=== PATIENT | female | born 1975 | race American Indian/Alaskan Native ===

== ENCOUNTER 2016-12-15 09:25 | Outpatient (CLI) | payer MEDICARE ==
--- NOTE | 2016-12-15 10:29 | Mammography Report ---
BILATERAL MAMMOGRAM: Compared to 10/15/15. CAD study utilized. FINDINGS: Bilateral dense breast parenchyma. No mass or microcalcification. Benign axilla. IMPRESSION: Benign findings. Annual follow-up recommended. BI-RADS CATEGORY: 2 = Benign ACR BI-RADS MAMMOGRAPHIC CODES: 0 = Needs additional imaging evaluation; 1 = Negative; 2 = Benign; 3 = Probably benign; 4 = Suspicious; 5 = Malignant; 6 = Known biopsy-proven malignancy COMMENT: 1. Dense breast tissue, i.e., adenosis, fibrocystic changes, etc., may obscure an underlying neoplasm. 2. Approximately 10% of cancers are not detected with mammography. 3. A negative mammography report should not delay biopsy if a clinically suspicious mass is present. COMMENT: Patient follow-up letters are generated in [employer].
== END 2016-12-15 09:26 | disposition home or self-care (01) ==
LOC: MAMMO 09:25
PROVIDERS: ATTEND Internal Medicine
DX: Z12.31 Encounter for screening mammogram for malignant neoplasm of breast (principal)
CPT/HCPCS: 77067; G0202

== ENCOUNTER 2018-04-07 19:25 | Emergency (ER) | payer MEDICARE ==
[2018-04-07] MEDS ORDERED: TYLENOL PO ONE (20:28)
[2018-04-07] MEDS ORDERED: ZOFRAN ODT ONE (20:42)
[2018-04-07] MEDS ORDERED: ZOFRAN ODT PO ONE (20:42)
[2018-04-07 20:51] LABS: Alanine Aminotransferase 27 units/L (7-56); Albumin 4.7 g/dL (3.9-5); BUN/Creatinine Ratio 10; Blood Urea Nitrogen 6 mg/dL (7-17); Calcium 9.8 mg/dL (8.4-10.2); Hemolysis Index 1; Lipase 41 units/L (13-60)
[2018-04-07 20:52] LABS: Basophils % (Auto) 0.3 % (0.0-1.8); Eosinophils % (Auto) 0.1 % (0.0-4.3); Hematocrit 36.7 % (30.3-42.9); Hemoglobin 11.9 gm/dl (10.1-14.3); Lymphocytes # (Auto) 0.9 K/mm3 (1.2-5.4); Lymphocytes % (Auto) 15.9 % (13.4-35.0); Mean Corpuscular HGB Conc 32 % (30-34); Mean Corpuscular Hemoglobin 28 pg (28-32); Mean Corpuscular Volume 85 fl (79-97); Monocytes # (Auto) 0.6 K/mm3 (0.0-0.8); Monocytes % (Auto) 11.2 % (0.0-7.3); Platelet Count 200 K/mm3 (140-440); Red Blood Count 4.32 M/mm3 (3.65-5.03); Red Cell Distribution Width 15.5 % (13.2-15.2)
[2018-04-07 21:44] LABS: Amorphous Crystals,Urine 1+; Bacteria,Urine 1+ /HPF (Negative); Bilirubin,Urine NEG (Negative); Blood,Urine NEG (Negative); Color,Urine Yellow (Yellow); Urobilinogen,Urine < 2.0 mg/dL (<2.0)
[2018-04-07 21:45] LABS: HCG Qualitative,Urine Negative (Negative)
[2018-04-08] MEDS ORDERED: TORADOL IV ONE (01:27)
[2018-04-08] MEDS ORDERED: ZOFRAN IV ONE (01:27)
[2018-04-08] MEDS ORDERED: NACL 0.9% 1000 ML 1,000 ML IV ONE (01:27)
--- NOTE | 2018-04-08 01:33 | Emergency Department Report ---
ED Abdominal Pain HPI - General Chief Complaint: Abdominal Pain Stated Complaint: ABD PAIN; FEVER Time Seen by Provider: 04/08/18 01:22 Source: patient Mode of arrival: Ambulatory Limitations: No Limitations - History of Present Illness Initial Comments: Patient is 43 years old female with no significant past medical history. The patient presented to the ER complaining of epigastric abdominal pain associated with fever and sore throat. Patient stated that her symptoms started this morning. Patient is also complaining of vomiting, no diarrhea. Patient denied any urinary frequency or dysuria. No chest pain or shortness of breath. MD Complaint: abdominal pain -: This morning Location: epigastric Radiation: none Migration to: no migration Severity: moderate Severity scale (0 -10): 6 Quality: sharp Consistency: constant Worsens With: vomiting Associated Symptoms: nausea, vomiting, chills. denies: constipation, dysuria, melena, hematuria, anorexia - Related Data Allergies Allergy/AdvReac Type Severity Reaction Status Date / Time No Known Allergies Allergy Verified 04/07/18 20:45 ED Review of Systems ROS: Stated complaint: ABD PAIN; FEVER Other details as noted in HPI Comment: All other systems reviewed and negative Constitutional: chills, fever ENT: throat pain Respiratory: denies: cough, orthopnea, shortness of breath, SOB with exertion, SOB at rest Gastrointestinal: abdominal pain, nausea, vomiting. denies: diarrhea, constipation, hematemesis, hematochezia Neurological: denies: headache, weakness, numbness, paresthesias ED Past Medical Hx - Past Medical History Previous Medical History?: Yes Additional medical history: cancer - Surgical History Past Surgical History?: Yes Additional Surgical History: c section - Social History Smoking Status: Never Smoker Substance Use Type: None ED Physical Exam - General Limitations: No Limitations General appearance: alert, in no apparent distress - Head Head exam: Present: atraumatic, normocephalic - Eye Eye exam: Present: normal appearance - ENT ENT exam: Present: mucous membranes moist. Absent: normal orophraynx ( pharyngeal erythema) - Neck Neck exam: Present: normal inspection, full ROM. Absent: tenderness, meningismus, lymphadenopathy, thyromegaly - Respiratory Respiratory exam: Present: normal lung sounds bilaterally. Absent: respiratory distress, wheezes, rales, rhonchi, stridor, accessory muscle use, decreased breath sounds, prolonged expiratory - Cardiovascular Cardiovascular Exam: Present: regular rate, normal rhythm, normal heart sounds - GI/Abdominal GI/Abdominal exam: Present: soft, tenderness (epigastric tenderness), normal bowel sounds, other (negative McBurney sign). Absent: distended, guarding, rebound, rigid, organomegaly, mass, bruit, pulsatile mass, hernia - Extremities Exam Extremities exam: Present: normal inspection, full ROM, normal capillary refill - Back Exam Back exam: Present: normal inspection, full ROM. Absent: tenderness, CVA tenderness (R), CVA tenderness (L), muscle spasm, paraspinal tenderness, vertebral tenderness, rash noted - Neurological Exam Neurological exam: Present: alert, oriented X3, CN II-XII intact, normal gait - Skin Skin exam: Present: warm, intact, normal color ED Course Vital Signs 04/07/18 04/08/18 04/08/18 19:49 02:05 04:22 Temperature 101.0 F H 99.3 F Pulse Rate 101 H 84 Respiratory 16 16 Rate Blood Pressure 132/84 Blood Pressure 128/81 [Right] O2 Sat by Pulse 100 98 Oximetry ED Medical Decision Making - Lab Data Result diagrams: 04/07/18 20:12 04/07/18 20:12 - Radiology Data Radiology results: report reviewed Referring Physician: VINICIO HICKS Patient Name: LORENA CHAUDHRY Date of : 1975 Sex: Female Report Date: 2018-04-08 Report Status: Finalized Findings [facility] [address] [place] [address] XRay Report Signed Patient: LORENA CHAUDHRY MR#: [id number] : 1975 Acct:[id number] Age/Sex: 43 / F ADM Date: 04/07/18 Loc: ED Attending Dr: Ordering Physician: VINICIO HICKS Date of Service: 04/08/18 Procedure(s): XR abd series w cxr 1V Accession Number(s): [id number] cc: VINICIO HICKS Fluoro Time In Minutes: FINAL REPORT EXAM: XR ABD SERIES W CXR 1V HISTORY: abdominal pain TECHNIQUE: A single view of the chest was obtained along with two views of the abdomen and pelvis. FINDINGS: The chest reveals normal heart size and mediastinum. The lungs are clear. Pleural fluid is not seen. The skeletal structures do not show any acute changes. The bowel gas pattern appears normal. There is a moderate amount retained feces in the ascending and transverse colon. There is no evidence of suspicious calcifications or mass effect. The bones soft tissues well maintained. IMPRESSION: Within normal limits. Transcribed By: RB Dictated By: RUPERT SILVERMAN MD Electronically Authenticated By: RUPERT SILVERMAN MD Signed Date/Time: 04/08/18152 DD/ 2 TD/TT: 04/08/18152 - Medical Decision Making Patient is sleeping comfortably, in no acute distress. She stated that she is feeling much better. No more abdominal pain or vomiting. I advised the patient to follow-up with her primary care physician in the next 2-3 days. I also advised to return to the ER if her symptoms are not improving. Critical care attestation.: If time is entered above; I have spent that time in minutes in the direct care of this critically ill patient, excluding procedure time. ED Disposition Clinical Impression: Abdominal pain, Gastritis Disposition: DC-01 TO HOME OR SELFCARE Is pt being admited?: No Condition: Stable Instructions: Abdominal Pain (ED), Gastritis (ED) Referrals: PRIMARY CAREMD [Primary Care Provider] - 3-5 Days
--- NOTE | 2018-04-08 02:11 | XRay Report ---
FINAL REPORT EXAM: XR ABD SERIES W CXR 1V HISTORY: abdominal pain TECHNIQUE: A single view of the chest was obtained along with two views of the abdomen and pelvis. FINDINGS: The chest reveals normal heart size and mediastinum. The lungs are clear. Pleural fluid is not seen. The skeletal structures do not show any acute changes. The bowel gas pattern appears normal. There is a moderate amount retained feces in the ascending and transverse colon. There is no evidence of suspicious calcifications or mass effect. The bones soft tissues well maintained. IMPRESSION: Within normal limits.
[2018-04-08] MEDS ORDERED: ALUM-MAG HYDROX-SIMETH 200-200-20MG/5ML PO ONE (02:38)
[2018-04-08] MEDS ORDERED: LIDOCAINE VISCOUS 2% PO ONE (02:38)
[2018-04-08 05:42] VITALS: BP 123/64
== END 2018-04-08 05:41 | disposition home or self-care (01) ==
LOC: ED 19:25
DX: K29.70 Gastritis, unspecified, without bleeding (principal)
CPT/HCPCS: 36415; 74022; 80053; 81001; 81025; 83690; 85025; 87116; 87430; 96361; 96374; 96375; 99284; J1885; J2405; J7030; Q0162

== ENCOUNTER 2019-01-26 11:51 | Emergency (ER) | payer MEDICARE ==
--- NOTE | 2019-01-26 11:59 | Emergency Department Report ---
Blank Doc - Documentation Documentation: This is a 44-year-old female that presents with abdominal pain with nausea/vom iting. This initial assessment/diagnostic orders/clinical plan/treatment(s) is/are subject to change based on patient's health status, clinical progression and re- assessment by fellow clinical providers in the ED. Further treatment and workup at subsequent clinical providers discretion. Patient/guardians urged not to elope from the ED as their condition may be serious if not clinically assessed and managed. Initial orders include: 1- Patient sent to [facility] for further evaluation and treatment 2- Ua 3- labs
[2019-01-26 12:50] LABS: Bilirubin,Urine NEG (Negative); Blood,Urine MOD (Negative); Color,Urine Yellow (Yellow); Mucus,Urine FEW /HPF; Protein,Urine <15 mg/dL mg/dL (Negative); Urobilinogen,Urine < 2.0 mg/dL (<2.0); WBC,Urine < 1.0 /HPF (0.0-6.0)
[2019-01-26 12:52] LABS: Albumin 4.3 g/dL (3.9-5)
[2019-01-26 12:53] LABS: HCG Qualitative,Urine Negative (Negative)
[2019-01-26 13:47] LABS: Alanine Aminotransferase 12 units/L (7-56); BUN/Creatinine Ratio 12; Blood Urea Nitrogen 6 mg/dL (7-17); Hemolysis Index 6
[2019-01-26 13:49] LABS: Bilirubin,Direct < 0.2 mg/dL (0-0.2)
--- NOTE | 2019-01-26 14:27 | Emergency Department Report ---
ED Female HPI - General Chief complaint: Urogenital-Female Stated complaint: STOMACH PAIN Time Seen by Provider: 01/26/19 11:57 Source: patient Mode of arrival: Ambulatory Limitations: No Limitations - History of Present Illness Initial comments: This is a 44-year-old healthy female who presents to ED complaining of lower pelvic pain with hematuria. Patient states that she sees little specks of blood when she urinates and increased when she wipes. Patient states pelvic pain and is crampy and localized to the pelvic region. She denies fever, vaginal bleeding, dysuria, vaginal discharge or itching. Patient admits some nausea and loss of appetite - Related Data Previous Rx's Medication Instructions Recorded Last Taken Type Esomeprazole Magnesium [NexIUM] 40 mg PO QDAY #30 capsule. 04/08/18 Unknown Rx Sucralfate [Carafate] 1 gm PO ACHS #120 tablet 04/08/18 Unknown Rx Ondansetron [Zofran ODT TAB] 4 mg PO Q8HR PRN #20 tab.rapdis 01/26/19 Unknown Rx Sulfamethoxazole/Trimethoprim 1 each PO BID #14 tablet 01/26/19 Unknown Rx [Bactrim DS TAB] traMADol [Ultram 50 MG tab] 50 mg PO Q6HR PRN #20 tablet 01/26/19 Unknown Rx Allergies Allergy/AdvReac Type Severity Reaction Status Date / Time No Known Allergies Allergy Verified 04/07/18 20:45 ED Review of Systems ROS: Stated complaint: STOMACH PAIN Other details as noted in HPI Comment: All other systems reviewed and negative ED Past Medical Hx - Past Medical History Previous Medical History?: Yes Additional medical history: cancer - Surgical History Past Surgical History?: Yes Additional Surgical History: c section - Social History Smoking Status: Never Smoker Substance Use Type: None - Medications Home Medications: Home Medications Medication Instructions Recorded Confirmed Last Taken Type Esomeprazole Magnesium [NexIUM] 40 mg PO QDAY #30 capsule. 04/08/18 Unknown Rx Sucralfate [Carafate] 1 gm PO ACHS #120 tablet 04/08/18 Unknown Rx Ondansetron [Zofran ODT TAB] 4 mg PO Q8HR PRN #20 tab.rapdis 01/26/19 Unknown Rx Sulfamethoxazole/Trimethoprim 1 each PO BID #14 tablet 01/26/19 Unknown Rx [Bactrim DS TAB] traMADol [Ultram 50 MG tab] 50 mg PO Q6HR PRN #20 tablet 01/26/19 Unknown Rx ED Physical Exam - General Limitations: No Limitations General appearance: alert, in no apparent distress - Head Head exam: Present: atraumatic, normocephalic - Eye Eye exam: Present: normal appearance - ENT ENT exam: Present: mucous membranes moist - Neck Neck exam: Present: normal inspection - Respiratory Respiratory exam: Present: normal lung sounds bilaterally. Absent: respiratory distress - Cardiovascular Cardiovascular Exam: Present: regular rate, normal rhythm. Absent: systolic murmur, diastolic murmur, rubs, gallop - GI/Abdominal GI/Abdominal exam: Present: soft, normal bowel sounds. Absent: distended, tenderness, guarding, rebound - Extremities Exam Extremities exam: Present: normal inspection - Back Exam Back exam: Present: normal inspection - Neurological Exam Neurological exam: Present: alert, oriented X3 - Psychiatric Psychiatric exam: Present: normal affect, normal mood - Skin Skin exam: Present: warm, dry, intact, normal color. Absent: rash ED Course Vital Signs 01/26/19 11:59 Temperature 98 F Pulse Rate 83 Respiratory 18 Rate Blood Pressure 126/92 O2 Sat by Pulse 100 Oximetry ED Medical Decision Making - Lab Data Result diagrams: 01/26/19 12:15 - Medical Decision Making This is 44-year-old female who presents with hematuria CBC within normal limits, CMP within normal limits, urinalysis within normal limits other than moderate blood Discussed findings with the patient. Discussed the patient may need to follow up with urology if symptoms persist. Referrals given. Patient is vital signs are normal she is in no acute distress She understands instructions as given. - Differential Diagnosis urethral stone, UTI, bladder cancer Critical care attestation.: If time is entered above; I have spent that time in minutes in the direct care of this critically ill patient, excluding procedure time. ED Disposition Clinical Impression: Hematuria, Cystitis Disposition: DC-01 TO HOME OR SELFCARE Is pt being admited?: No Does the pt Need Aspirin: No Condition: Stable Instructions: Acute Hematuria (ED) Additional Instructions: Make sure to follow up with the primary care physician as discussed. Take all your medications as you've been prescribed. If you have any worsening symptoms or develop new symptoms please return to ED immediately. Prescriptions: Sulfamethoxazole/Trimethoprim [Bactrim DS TAB] 1 each PO BID #14 tablet traMADol [Ultram 50 MG tab] 50 mg PO Q6HR PRN #20 tablet PRN Reason: Pain Ondansetron [Zofran ODT TAB] 4 mg PO Q8HR PRN #20 tab.rapdis PRN Reason: Nausea And Vomiting Referrals: PRIMARY CAREMD [Primary Care Provider] - 3-5 Days GABBY DYKES MD [Staff Physician] - 3-5 Days JAVI CHAPMAN MD [Referring] - 3-5 Days MANINDER GRAHAM MD [Referring] - 3-5 Days Forms: Work/School Release Form(ED) Time of Disposition: 14:54
[2019-01-26 14:52] VITALS: BP 127/90
== END 2019-01-26 15:08 | disposition home or self-care (01) ==
LOC: ED 11:51
DX: N30.91 Cystitis, unspecified with hematuria (principal)
CPT/HCPCS: 36415; 80048; 80076; 81001; 81025; 83690

== ENCOUNTER 2019-12-09 07:51 | Emergency (ER) | payer MEDICARE ==
[2019-12-09] MEDS ORDERED: CYCLOBENZAPRINE 10 MG TAB PO ONE (09:31)
[2019-12-09] MEDS ORDERED: IBUPROFEN 600 MG TAB PO ONE (09:31)
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
[2019-12-09 12:15] VITALS: BP 136/85
== END 2019-12-09 12:14 | disposition home or self-care (01) ==
LOC: ED 07:51
DX: S16.1XXA Strain of muscle, fascia and tendon at neck level, initial encounter (principal); S46.912A Strain of unspecified muscle, fascia and tendon at shoulder and upper arm level, left arm, initial encounter; M25.552 Pain in left hip; Z98.890 Other specified postprocedural states; Z79.899 Other long term (current) drug therapy; Z85.9 Personal history of malignant neoplasm, unspecified; V49.49XA Driver injured in collision with other motor vehicles in traffic accident, initial encounter; Y92.410 Unspecified street and highway as the place of occurrence of the external cause; Y93.89 Activity, other specified; Y99.8 Other external cause status